=== PATIENT | female | born 1945 | race Caucasian/White ===

== ENCOUNTER 2018-12-03 05:51 | Observation (INO) | payer MEDICARE, OTHER ==
[2018-12-03] MEDS ORDERED: ENOXAPARIN SODIUM 40 MG/0.4 ML DISP.SYRIN SQ ONE ×2 (06:20→08:48)
[2018-12-03] MEDS ORDERED: LACTATED RINGERS 1,000 ML IV ONE (06:20)
[2018-12-03] MEDS ORDERED: FAMOTIDINE 20 MG/2 ML VIAL ONE ×2 (06:21→08:48)
[2018-12-03] MEDS ORDERED: MIDAZOLAM HCL 2 MG/2 ML VIAL ONE (08:48)
[2018-12-03] MEDS ORDERED: DEXAMETHASONE SODIUM PHOSPHATE 10 MG/ML VIAL ONE (08:48)
[2018-12-03] MEDS ORDERED: GLYCOPYRROLATE 0.2 MG/1 ML 1 ML ONE (08:48)
[2018-12-03] MEDS ORDERED: PROPOFOL 200 MG/20 ML VIAL IV ONE (08:48)
[2018-12-03] MEDS ORDERED: fentaNYL CITRATE/PF 100 MCG/2 ML AMP ONE ×3 (08:48→09:51)
[2018-12-03] MEDS ORDERED: ROCURONIUM BROMIDE 10 MG/ML 5ML VIAL ONE (08:48)
[2018-12-03] MEDS ORDERED: SEVOFLURANE 250 ML LIQUID IH ONE (08:48)
[2018-12-03] MEDS ORDERED: ONDANSETRON HCL/PF 4 MG/ 2ML VIAL ONE (08:48)
[2018-12-03] MEDS ORDERED: LIDOCAINE HCL 2% PF 100MG/5ML VIAL IJ ONE (08:48)
[2018-12-03] MEDS ORDERED: FENTANYL CITRATE ONE (08:48)
[2018-12-03] MEDS ORDERED: LACTATED RINGERS 1,000 ML IV.SOLN IV ONE ×2 (08:48)
[2018-12-03] MEDS ORDERED: ceFAZolin SODIUM 1 GM VIAL ONE (08:48)
[2018-12-03] MEDS ORDERED: ePHEDrine SULFATE 50 MG/1 ML IVP ONE (08:48)
[2018-12-03] MEDS ORDERED: SUGAMMADEX SODIUM 200 MG/2 ML VIAL IV ONE (08:48)
[2018-12-03] MEDS ORDERED: MORPHINE SULFATE 4 MG/ML VIAL IVP PRN (10:20)
[2018-12-03] MEDS ORDERED: ONDANSETRON HCL/PF 4 MG/ 2ML VIAL IVP PRN (10:20)
[2018-12-03] MEDS ORDERED: 0.9 % SODIUM CHLORIDE 1,000 ML IV SCH (10:30)
--- NOTE | 2018-12-03 10:42 | History and Physical Report ---
History of Present Illnes - History of Present Illness Reason for Visit: Lap Band Removal History of Present Illness: Patient is a 73-year-old female that had the band placed approx. 9 years ago. She continued to have problems with band intolerances such as; pain, belching, vomiting, and spasms. She states that symptoms have been severe in intensity, usually resolving over minutes to hours and usually occur in the upper abdomen. It was decided between patient and surgeon to continue with band removal. 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 Alcohol: Rare Drugs: None Lives: With Family Domestic Violence: Negative - Health Maintenance Health Maintenance: Pneumococcal Vaccine, Mammogram, Colonoscopy. denies: Influenza Vaccine Influenza Vaccine: No, Patient Refused Pneumonia Vaccine: Yes Resuscitation Status: Resusciation Status Resuscitation Status Full Code - Unable to Obtain History Unable to Obtain: No Review of Systems - Review of Systems Constitutional: negative: Fever, Chills Eyes: negative: pain, vision change ENT: negative: Ear Pain, Nose Pain, Throat Pain Respiratory: negative: Cough, Shortness of Breath Cardiovascular: Light Headedness (Thinks it is because she has not eaten). negative: Chest Pain Gastrointestinal: Abdominal Pain (describes as sore). negative: Nausea, Vomiting Genitourinary: negative: Dysuria Musculoskeletal: negative: Back Pain Skin: negative: Rash Neurological: negative: Weakness, Confusion - Medications/Allergies Allergies/Adverse Reactions: Allergies Allergy/AdvReac Type Severity Reaction Status Date / Time No Known Allergies Allergy Verified 12/03/18 10:20 Home Medications: Home Medications Amitriptyline HCl 25 mg PO DAILY 12/03/18 Atorvastatin Calcium [Lipitor] 20 mg PO DAILY 12/03/18 Zolpidem Tartrate [Ambien] 10 mg PO HS 12/03/18 Current Inpatient Medications: Current Inpatient Medications Sodium Chloride (Normal Saline) 1,000 mls @ 150 mls/hr IV Q8H KIMBERLY Morphine Sulfate () 2 mg IVP Q2 PRN PRN Reason: Sev. Pain- If unable take PO Stop: 12/07/18 10:19 Ondansetron HCl (Zofran 4 Mg/2 Ml) 4 mg IVP Q6H PRN PRN Reason: Nausea / Vomiting Stop: 12/07/18 10:19 Exam - Exam General: Alert, Oriented to Person, Oriented to Place, Oriented to Time, [place] rative, No acute distress, Morbidly Obese HEENT: Atraumatic, Mouth Mucous membr. moist/[place], Nose Mucous membr. moist/[place] Neck: Normal Range of Motion Carotids: No bruit Lungs: Clear to auscultation, Normal air movement, Speaks full Sentences Cardiovascular: Regular rate, Normal S1, Normal S2 Peripheral Edema: None Peripheral Pulses: 2+ Abdomen: Soft, Decreased Bowel Sounds Integumentary: Normal, [place], Warm, Dry Extremities: No edema, Normal pulses, No tenderness/swelling Neurological: Normal speech, Strength Equal Bilat, Normal tone, Sensation intact Psych/Mental Status: Mental status NL, Mood NL, Appropriate Affect, Intact Judgment Assessment/Plan - Assessment/Plan (1) History of removal of laparoscopic gastric banding device Status: Acute Current Visit: Yes Assessment: LCTA, abdomen is soft- mildly tender- legs are without redness or swelling, Will monitor incision sites, Plan: Will have patient up and ambulatory, SCDs while in bed, frequent use of incentive spirometer, monitor vital signs and diet (2) Hypercholesteremia Status: Acute Current Visit: Yes Assessment: Stable on home meds Plan: Will continue home meds (3) Morbid obesity Status: Acute Current Visit: Yes Assessment: Gastric band removal Plan: Will get dietary consult to help with better choices (4) GERD (gastroesophageal reflux disease) Status: Acute Current Visit: Yes Qualifiers: Esophagitis presence: without esophagitis Qualified Code(s): K21.9 - Gastro-esophageal reflux disease without esophagitis Assessment: sTable with diet Plan: Stable- will monitor VTE Assessment - RISK FACTOR SCORE VTE RISK FACTOR SCORES: AGE OVER 60 YEARS, OBESITY, MINOR SURGERY/ ANESTHESIA TIME < 1 HOUR - RISK VTE HIGH RISK: SCORE OF 3-4 (RISK PROXIMAL DVT 4-8%) PROPHYLAXIS NEEDED (will ambulate frequently, SCDs while in bed, Use of Incentive spirometer)
[2018-12-03] MEDS: HYDROCODONE/ACETAMINOPHEN 7.5/325 MG TAB PO PRN ×2 (10:58→14:24)
[2018-12-03 11:57] VITALS: BMI 44.8
--- NOTE | 2018-12-03 12:54 | Discharge Summary ---
Discharge Summary - Discharge Sumary History of Present Illness: Patient is a 73-year-old female that had the band placed approx. 9 years ago. She continued to have problems with band intolerances such as; pain, belching, vomiting, and spasms. She states that symptoms have been severe in intensity, usually resolving over minutes to hours and usually occur in the upper abdomen. It was decided between patient and surgeon to continue with band removal. Condition at Discharge: Stable Home Medications: Ambulatory Orders Medication Instructions Recorded Amitriptyline HCl 25 mg PO DAILY 12/03/18 Atorvastatin Calcium [Lipitor] 20 mg PO DAILY 12/03/18 Zolpidem Tartrate [Ambien] 10 mg PO HS 12/03/18 Consultations this Visit: None Procedures this Visit: Other (S/P gastric band removal) Allergies/Adverse Reactions: Allergies Allergy/AdvReac Type Severity Reaction Status Date / Time No Known Allergies Allergy Verified 12/03/18 10:20 Patient Problems: Current Active Problems Problem Status Onset GERD (gastroesophageal reflux disease) Acute History of removal of laparoscopic gastric banding device Acute Hypercholesteremia Acute Morbid obesity Acute Discharge Summary: Patient was admitted to the floor under observation care s/p gastric band removal- as long as patient did well and was able to tolerate PO; surgeon was ok with patient going home. Patient states that she feels fine, pain is mild and has no nausea. She is here with her and they have a long drive home and would like to get on the road. She will be given discharge instructions to follow s/p gastric band removal. She is alert and oriented x4- no apparent distress. She plans on trying to watch her caloric intake when she gets home. - Final Diagnosis (1) History of removal of laparoscopic gastric banding device Problems: No discomfort after lab band removal Right or Left: Right (2) Hypercholesteremia Problems: stable on home meds Right or Left: Right (3) Morbid obesity Problems: pt plans to monitor her caloric intake Right or Left: Right (4) GERD (gastroesophageal reflux disease) Problems: stable on home meds Right or Left: Right
[2018-12-03 14:49] VITALS: BP 131/64
[2018-12-03] MEDS ORDERED: ZOLPIDEM TARTRATE 5 MG TABLET PO SCH (21:00)
[2018-12-04] MEDS ORDERED: AMITRIPTYLINE HCL 25 MG TABLET PO SCH (09:00)
[2018-12-04] MEDS ORDERED: ATORVASTATIN CALCIUM 20 MG TABLET PO SCH (09:00)
== END 2018-12-03 14:30 | disposition home or self-care (01) ==
LOC: OPSURG 05:51 → SOUTH 06:10 → UNDOADMOB 10:12 → UNDODISOB 14:30
PROVIDERS: ADMIT Nurse Practitioner Family; ATTEND Nurse Practitioner Family
DX: K95.09 Other complications of gastric band procedure (principal); E66.01 Morbid (severe) obesity due to excess calories; K21.9 Gastro-esophageal reflux disease without esophagitis; E78.5 Hyperlipidemia, unspecified
CPT/HCPCS: 43235; 43774; G0378; J0690; J1650; J2001; J2250; J2405; J2704; J3010; J3490; J7030; J7120; S0028; 99234